=== PATIENT | female | born 1975 | race Caucasian/White ===

== ENCOUNTER → 2017-07-29 | Outpatient (CLI) | payer OTHER ==
[2017-07-14 07:00] VITALS: BP 132/84
[~2017-07-29] MED LIST: CEPH-263 PO; FERR325T72 PO; HYDR-2758 PO; IBUP-1060 PO; MULT-208 PO; ONDA4TAB10 SL; OXYC-323 PO; TRAM50TA PO
[2017-07-29 15:39] LABS: ALBUMIN 3.2 g/dL (3.4-5.0); ALBUMIN/GLOBULIN RATIO 0.7 (1.0-1.7); GFR 61.7; POTASSIUM 3.5 mmol/L (3.5-5.1); TOTAL BILIRUBIN 0.3 mg/dL (0.2-1.0); TOTAL PROTEIN 8.1 g/dL (6.4-8.2)
[2017-07-29 16:04] LABS: BASO # 0.1 x10^3/uL (0.0-0.2); BASO % 1 % (0-3); EOS % 2 % (0-3); HEMATOCRIT 31.6 % (36.0-47.0); HEMOGLOBIN 10.1 g/dL (12.0-15.5); LYMPH # 2.4 x10^3/uL (1.0-4.8); LYMPH % 23 % (24-48); MEAN CORPUSCULAR HEMOGLOBIN 24 pg (25-35); MEAN CORPUSCULAR HGB CONC 32 g/dL (31-37); MEAN CORPUSCULAR VOLUME 74 fL (79-100); MONO % 6 % (0-9); NEUT % 69 % (31-73); PLATELET COUNT 542 x10^3/uL (140-400); RED BLOOD COUNT 4.27 x10^6/uL (3.50-5.40); RED CELL DISTRIBUTION WIDTH 17.1 % (11.5-14.5); WHITE BLOOD COUNT 10.6 x10^3/uL (4.0-11.0)
== END | disposition home or self-care (01) ==
LOC: SURGPAT 14:37
PROVIDERS: ATTEND Obstetrics & Gynecology
DX: R10.9 Unspecified abdominal pain (principal)
CPT/HCPCS: 36415; 80053; 85025

== ENCOUNTER 2017-07-31 06:34 | Observation (INO) | payer OTHER ==
[~2017-07-31] VITALS: Ht 165.1 cm; Wt 101.2 kg
[2017-07-31] MEDS ORDERED: BUPIVACAINE-EPI 0.25%-1:200000 MPF 30 ML VIAL. ONE (06:37)
[2017-07-31] MEDS ORDERED: ESTROGENS, CONJ VAGINAL CREAM 30GM TUBE. ONE (06:37)
[2017-07-31] MEDS ORDERED: LIDOCAINE 1% 1 ML SYRINGE. ID PRN (07:00)
[2017-07-31] MEDS ORDERED: IV RINGERS,LACTATED 1000ML 1,000 ML IV SCH (07:00)
[2017-07-31] MEDS ORDERED: fentaNYL PF VIAL 100 MCG/2 ML VIAL IV PRN (07:00)
[2017-07-31] MEDS ORDERED: ONDANSETRON PF 4 MG/2 ML VIAL. IV PRN ×2 (07:00→12:15)
[2017-07-31] MEDS ORDERED: HYDROmorphone 2 MG/ML VIAL IV PRN ×2 (07:00→12:15)
[2017-07-31] MEDS ORDERED: PROCHLORPERAZINE 10 MG/2 ML VIAL. IV PRN (07:00)
[2017-07-31] MEDS ORDERED: SCOPOLAMINE 1.5MG PATCH. TD ONE (07:15)
[2017-07-31 07:35] LABS: NEG OBC UR NEG; POS OBC UR POS
[2017-07-31] MEDS ORDERED: SUCCINYLCHOLINE 200 MG/10 ML VIAL. ONE (07:44)
[2017-07-31] MEDS ORDERED: MIDAZOLAM HCL/PF 2 MG/2 ML VIAL. ONE (07:45)
[2017-07-31] MEDS ORDERED: fentaNYL PF VIAL 250 MCG/5 ML VIAL ONE (07:46)
[2017-07-31] MEDS ORDERED: ROCURONIUM 100 MG/10 ML VIAL. ONE (08:25)
[2017-07-31] MEDS ORDERED: ePHEDrine PF IN SALINE 50 MG/5 ML DISP.SYRIN IV ONE (08:25)
[2017-07-31] MEDS ORDERED: NEOSTIGMINE 10 MG/10 ML VIAL. ONE (08:30)
[2017-07-31] MEDS ORDERED: NEOSTIGMINE METHYLSULFATE 5 MG/5 ML SYRINGE. ONE (08:31)
[2017-07-31] MEDS ORDERED: GLYCOPYRROLATE 1 MG/5 ML VIAL. ONE (08:31)
[2017-07-31] MEDS ORDERED: PROPOFOL 40 ML IV ONE (08:32)
[2017-07-31] MEDS ORDERED: FAMOTIDINE 20 MG/2 ML VIAL ONE (08:45)
[2017-07-31] MEDS ORDERED: ESMOLOL 100 MG/10 ML VIAL. IV ONE (08:45)
[2017-07-31] MEDS ORDERED: ONDANSETRON PF 4 MG/2 ML VIAL. ONE (08:45)
[2017-07-31] MEDS ORDERED: DEXAMETHASONE SOD PHOS 20 MG/5 ML VIAL. ONE ×2 (08:45→10:53)
[2017-07-31] MEDS ORDERED: fentaNYL PF VIAL 100 MCG/2 ML VIAL ONE ×3 (08:50→12:37)
[2017-07-31] MEDS ORDERED: LABETALOL 20 MG/4 ML DISP.SYRIN. ONE (08:56)
--- NOTE | 2017-07-31 09:51 | PDOC4 ---
Operative Note Operative Note Date: 07/31/2017 Preoperative diagnosis: Left ovarian cyst with adhesions of the colon to the uterus Postoperative diagnosis: Left tubo-ovarian abscess with adhesions of the colon to the uterus Procedure: Robotic-assisted laparoscopic diagnostic with lysis of adhesions Surgeon: Kranthi Specimen: None Dictation: Mayur Quigley is a 41-year-old female had been recently admitted to the hospital with lower abdominal pain. At that time she was diagnosed with a left ovarian and cyst underwent a diagnostic laparoscopy and was found to have a normal-appearing tube and ovary on the left side but was difficult to visualize at that time secondary to colon being adhesed to the uterus and this area of the ovary and tube it was felt that time too dangerous to proceed she was rescheduled for a hysterectomy and I was requested to help with colonic adhesions. The procedure of robotic-assisted laparoscopy with lysis of adhesions was explained to the patient detail was benefits were also discussed including bleeding infection injury to colon possibly necessitating open or further operations. The patient seemed understanding gave both verbal and written consent have procedure performed. She was taken to the operating room placed in the supine position general anesthesia was initiated once patient was asleep and intubated she was placed in low lithotomy positioning. Her abdomen was prepped and draped usual sterile fashion using ChloraPrep peritoneum was prepped with Betadine scrub and solution. An area in the left upper quadrant was injected with quarter percent Marcaine with epinephrine and incision was made lead blade scalpel and a 5 mm Visiport was placed under direct visualization into the abdomen creating a pneumoperitoneum. Abdomen was inspected with a 5 mm camera was noted that she had some adhesions to the omentum to the anterior abdominal wall just below the umbilicus. At this time 3 da Taras ports were placed under direct visualization one in the right mid abdomen and one in the left mid abdomen and one above the umbilicus the da Taras robot was brought in and docked all port sites using a grasper and Endo Khloe scissors the adhesions to the anterior abdominal wall from the omentum were taken down. At this point Dr. Navarro placed uterine manipulator. Was noted that the sigmoid colon was adherent to the undersurface of the uterus and along the left side across to the area where the ovary would be as well as the tube which was quite dilated upon slowly dissecting off the sigmoid colon with blunt dissection a large amount of pus was expressed from the ovarian tube. The adhesions from the colon to the uterus were further taken down with blunt dissection completely rating the colon from the uterus. Area was irrigated and suctioned dry. The rest of the procedures to be dictated by . Estimated blood loss for my portion of the procedure 60 mL. STEVE KINSEY MD Jul 31, 2017 09:50
[2017-07-31] MEDS ORDERED: PHENYLEPHRINE in 0.9% NACL PF 1 MG/10 ML DISP.SYRIN. IV ONE (10:53)
[2017-07-31] MEDS ORDERED: ALBUMIN HUMAN 25% 100 ML IV ONE (11:20)
[2017-07-31] MEDS ORDERED: DESFLURANE > 120 MINUTES IH ONE (11:56)
--- NOTE | 2017-07-31 12:04 | PDOC ---
BRIEF OPERATIVE NOTE Date: Jul 31, 2017 Pre-Op Diagnosis pelvic pain, pelvic adhesive disease, history of endometriosis. Post-Op Diagnosis same plus TOA Procedure Performed LAVH and BSO with adhesiolysis\ cystoscopy Surgeon Melanie Restaurant Maintenance Technician Nba Anesthesiologist Shavon Anesthesia Type: General Blood Loss 1100cc IV Fluid see anesthesia report Urine Output 250cc- clear urine Specimens Obtained uterus, tubes, ovaries, TOA complex Findings see dictation Complications none FABRICIO HOLMAN MD Jul 31, 2017 12:04
[2017-07-31] MEDS ORDERED: PROCHLORPERAZINE 10 MG/2 ML VIAL. ONE (12:05)
[2017-07-31] MEDS ORDERED: NALOXONE 0.4 MG/ML VIAL. IV PRN (12:15)
[2017-07-31] MEDS ORDERED: diphenhydrAMINE 50 MG/ML VIAL IV PRN (12:15)
[2017-07-31] MEDS ORDERED: ZOLPIDEM 5 MG TABLET. PO PRN (12:15)
[2017-07-31] MEDS ORDERED: 0.9 % SODIUM CHLORIDE 10 ML DISP.SYRIN. IV PRN (12:15)
[2017-07-31] MEDS ORDERED: ESTRADIOL WEEKLY 0.1 MG PATCH. TD ONE (12:15)
[2017-07-31] MEDS ORDERED: diphenhydrAMINE HCL 25 MG CAPSULE PO PRN (12:15)
[2017-07-31] MEDS ORDERED: METOCLOPRAMIDE HCL 10 MG/2 ML VIAL. IV PRN (12:15)
[2017-07-31] MEDS ORDERED: LACTULOSE 20 GM/30 ML SOLUTION. PO PRN (12:15)
[2017-07-31] MEDS ORDERED: CALCIUM CARBONATE 500 MG TAB.CHEW PO PRN (12:15)
[2017-07-31] MEDS: fentaNYL PF VIAL 100 MCG/2 ML VIAL IV PRN ×4 (12:30→13:23)
[2017-07-31] MEDS ORDERED: MORPHINE SULFATE 2 MG/ML DISP.SYRIN. ONE ×2 (12:37→13:00)
[2017-07-31] MEDS: KETOROLAC 30 MG/ML INJ. IV PRN ×2 (12:41→21:41)
[2017-07-31] MEDS: MORPHINE SULFATE 2 MG/ML DISP.SYRIN. IV PRN ×4 (12:44→13:30)
[2017-07-31 13:30] VITALS: BP 89/57
[2017-07-31 13:45] VITALS: BP 102/54
[2017-07-31 14:00] VITALS: BP 112/58
[2017-07-31 14:58] VITALS: BP 104/73
[2017-07-31] MEDS: oxyCODONE/APAP 5/325 1 TAB TABLET PO PRN (16:32)
[2017-07-31 16:59] VITALS: BP 110/62
[2017-07-31] MEDS: HYDROmorphone 2 MG/ML VIAL IM PRN (19:05)
[2017-07-31 21:40] VITALS: BP 96/58
[2017-08-01] VITALS (9 sets, daily range): BP systolic 103–142; BP diastolic 52–73
[2017-08-01] MEDS: HYDROmorphone 2 MG/ML VIAL IM PRN (01:44)
[2017-08-01] MEDS: SIMETHICONE 80 MG TAB.CHEW PO PRN ×2 (07:36→17:13)
[2017-08-01] MEDS: oxyCODONE/APAP 5/325 1 TAB TABLET PO PRN (07:36)
[2017-08-01] MEDS: FERROUS SULFATE 325 MG TABLET. PO SCH ×2 (07:36→17:13)
--- NOTE | 2017-08-01 08:47 | PDOC ---
SURGICAL PROGRESS NOTE Subjective Pt is very sore. Feeling lightheaded and dizzy also. Was not able to eat breakfast yet. No bleeding Moderate pain. Sitting in chair Vital Signs Vital Signs Date Time Temp Pulse Resp B/P (MAP) Pulse Ox O2 Delivery O2 Flow Rate FiO2 08/01/17 07:36 16 Room Air 08/01/17 01:52 98.4 88 142/71 (94) 99 98.4 07/31/17 14:58 2.0 PATIENT HAS A HUITRON: No General: Alert, Oriented X3, Cooperative, No acute distress HEENT: Mucous membr. moist/pink Lungs: Clear to auscultation, Normal air movement Heart: Regular rate, Normal S1, Normal S2, No murmurs Abdomen: Normal bowel sounds, Soft, No tenderness, No hepatosplenomegaly, No masses, Other (incisions c /d /i) Extremities: No clubbing, No cyanosis, No edema, Normal pulses, No tenderness/ swelling Skin: No rashes, No breakdown, No significant lesion Labs Laboratory Tests Test 07/31/17 07:05 07/31/17 16:30 08/01/17 05:30 Urine Test Negative (NEG) Hematocrit 24.4 % (36.0-47.0) Hemoglobin 6.4 g/dL (12.0-15.5) Laboratory Tests Test 07/31/17 16:30 08/01/17 05:30 Hematocrit 24.4 % (36.0-47.0) Hemoglobin 6.4 g/dL (12.0-15.5) I have reviewed the following labs, vitals Problem List POD #1 from Robotic assisted lavh and bso with adhesiolysis and cytstoscopy. Pt is anemic from prior anemia and surgical blood loss. Plan for type, cross and transfusion of 2 U prbcs today. Ambulate and advance diet. Problems: FABRICIO HOLMAN MD Aug 01, 2017 08:47
--- NOTE | 2017-08-01 08:48 | DISCH ---
DISCHARGE INSTRUCTIONS Condition on Discharge Condition on Discharge: Stable Activity After Discharge Activity Instructions for Disc: Activity as tolerated Exercise Instruction after Dis: Progress as tolerated Driving Instructions after Dis: No driving for 2 weeks Weight Bearing Status after Di: Full weight bearing Diet after Discharge Diet after Discharge: Regular Wound Incision Care Wound/Incision Care: Ice to area for comfort, May get incision wet Contacting the DRHong after DC Call your doctor for: If your condition worsens Follow-Up Follow up with: Dr. Holman in 1 week FABRICIO HOLMAN MD Aug 01, 2017 08:48
[2017-08-01] MEDS: MAG HYDROX/ALUMINUM HYD/SIMETH 30 ML ORAL.SUSP PO PRN ×2 (09:54→18:44)
[2017-08-01] MEDS: IBUPROFEN 600 MG TABLET. PO PRN ×2 (09:54→18:44)
--- NOTE | 2017-08-01 09:59 | OP ---
DATE OF SURGERY: The patient is a 41-year-old female who presented yesterday for robotic-assisted LAVH and BSO due to history of pelvic adhesive disease and severe pelvic pain. PREOPERATIVE DIAGNOSES: Pelvic pain and pelvic adhesive disease with history of endometriosis. POSTOPERATIVE DIAGNOSES: Pelvic pain and pelvic adhesive disease with history of endometriosis plus tubo-ovarian abscess. PROCEDURE PERFORMED: LAVH and BSO with adhesiolysis robotic-assisted and then cystoscopy. SURGEON: Dr. Candis Holman and Dr. Arango. ANESTHESIOLOGIST: Dr. Sands. ANESTHESIA TYPE: General. BLOOD LOSS: 1100 mL. INTRAVENOUS FLUIDS: Please see the anesthesia report. URINE OUTPUT: 250 mL of clear urine. SPECIMENS: Uterus, tubes, ovaries, and TOA complex. DESCRIPTION OF PROCEDURE: After informed consent was obtained, the patient was taken to the operating room and given a smooth induction of anesthesia without complications. completed his part of the procedure first which include robotically placing the ports. Please see his description of his procedure. I was called in to the operating room to place the vaginal instruments. I put a speculum in the vagina and put a tenaculum in the cervix. I placed the Valtchev in the cervical os and attached it to the tenaculum. I then removed the speculum. Once was done taking down the bowel, I was called back to the OR for my portion of procedure. I robotically took down the round ligament on the right side and began to take down the infundibulopelvic ligament on the right side. Unfortunately, this began to bleed profusely and it was difficult to see, so at this point, we decided to abandon the robot. The robot was disconnected and Dr. Arango came in to assist with the rest of the procedure. We used the LigaSure to cauterize the pedicles and this did much better job than the robot. The patient's tissue was very poor and friable and this was the primary reason for so much blood loss. In addition to the fact that she had so many adhesions and these were just primarily oozing. We took down the right side pretty easily. The site was pretty much clear. It was a little bit difficult to dissect the bladder flap anteriorly. This was done with a combination of the LigaSure and blunt dissection. We were able to cauterize the round ligament and the infundibulopelvic ligament on the right side. We were able to visualize the ureter on the right side. Once we took down the uterine arteries using the LigaSure, we took these all the way down to the uterosacral ligaments on the right side. The left side was much more difficult. We were up to cauterize the round ligament on the left and this was transected with the LigaSure. We then were left to deal with the large TOA complex. We were able to find the end of the tube and we were able to elevate the tube. At this point, it was clear that the TOA was still draining. We were able to create a plane between what was up to the TOA complex and ovary and the bowel that was still stuck at this point. We bluntly dissected this with the suction and we were able to peel the ovary into a complex off of the pelvic sidewall. Once this was free, we transected the infundibulopelvic ligament. We stayed high on the ovaries since we were not able to see the ureter at all. Once these were free, we came down the sides of the uterus, cauterizing the uterine arteries as we went. At this point, we went down below. The speculum was placed back in the vagina and the tenaculum and Valtchev were removed. We injected at the cervicovaginal junction with 0.5% Marcaine with epinephrine at 2, 4, 8 and 10 o'clock on the cervix. We then created a circumferential incision around the cervix. Again, we had a lot of difficulty with the friability of the tissue and parts of the cervix were tearing. It was hard to develop the bladder flap, it was hard to enter posteriorly. The whole case was very difficult. We were eventually able to enter the posterior peritoneum and this was tacked in the posterior vaginal wall and saved for later use. A Adry speculum was then placed intraperitoneally. We then used Harjeet clamps to clamp, cut and ligate the uterosacral ligaments. These were then tacked to the lateral vaginal sidewalls. We were able to clamp, cut and ligate what was left of the uterosacral ligaments and eventually, we were able to enter anteriorly and free up the rest of the uterus. Once this was free, it was removed. At this point, Dr. Arango had to go back above and push the right ovary which had become detached, the tubo-ovarian complex which was detached and the left ovary, which had become detached. She had to push them all through the vaginal cuff because it was difficult to find them from below. Once these were all obtained, we closed the peritoneum using a pursestring suture of 2-0 Vicryl. Vagina was then closed with running locking stitch of 2-0 Vicryl. At this point, we did a cystoscopy. The bladder was noted to be clear. Both ureters were noted to be jetting urine. We then went above to irrigate the pelvis. No active bleeding was noted. The raw surfaces were sprayed with Tisseel. At this point, the procedure was terminated. The instruments were removed under direct visualization and the ports were closed with an interrupted suture of 4-0 nylon. The patient tolerated the procedure well. There were no complications except for an excessive amount of blood loss. She went to the recovery room in good condition. CANDIS HOLMAN MD DR: GREG/josselyn JOB#: [id number] / [id number]
[2017-08-01] MEDS: HYDROcodone/APAP 5/325MG 1 TAB TABLET PO PRN ×3 (13:49→22:29)
[2017-08-02 00:11] LABS: HEMATOCRIT 24.5 % (36.0-47.0); HEMOGLOBIN 8.1 g/dL (12.0-15.5)
[2017-08-02] MEDS: IBUPROFEN 600 MG TABLET. PO PRN (09:37)
--- NOTE | 2017-08-02 10:36 | PDOC ---
SURGICAL PROGRESS NOTE Subjective Doing much better. No bleeding . Not dizzy since getting blood. Eating and taking Lortab. Feels this works better with less stomach upset than the percocet Vital Signs Vital Signs Date Time Temp Pulse Resp B/P (MAP) Pulse Ox O2 Delivery O2 Flow Rate FiO2 08/01/17 22:31 98.4 62 118/69 (85) 98 Room Air 98.4 08/01/17 22:29 16 PATIENT HAS A HUITRON: No General: Alert, Oriented X3, Cooperative, No acute distress HEENT: Mucous membr. moist/pink Abdomen: Normal bowel sounds, Soft, No tenderness, No hepatosplenomegaly, No masses, Other (incisions c/d/i) Extremities: No clubbing, No cyanosis, No edema, Normal pulses, No tenderness/ swelling Labs Laboratory Tests Test 07/31/17 16:30 08/01/17 05:30 08/02/17 00:01 Hematocrit 24.4 % (36.0-47.0) 24.5 % (36.0-47.0) Hemoglobin 6.4 g/dL (12.0-15.5) 8.1 g/dL (12.0-15.5) Mean Corpuscular Hemoglobin Concent 33 g/dL (31-37) Laboratory Tests Test 08/02/17 00:01 Hemoglobin 8.1 g/dL (12.0-15.5) Hematocrit 24.5 % (36.0-47.0) Mean Corpuscular Hemoglobin Concent 33 g/dL (31-37) I have reviewed the following vitals, exam, labs Problem List POD#2 from surgery. Plan is to discharge today. Instructions given Problems: FABRICIO HOLMAN MD Aug 02, 2017 10:36
--- NOTE | 2017-08-02 10:41 | PDOC3 ---
Discharge Summary Visit Information Date of Admission: Jul 31, 2017 Date of Discharge: Aug 02, 2017 Admitting Diagnosis: pelvic pain, pelvic adhesive disease, probable endometri Final Diagnosis pelvic pain, pelvic adhesive disease, anemia, TOA Brief Hospital Course Allergies Allergies Coded Allergies Type Severity Reaction Last Updated Verified No Known Drug Allergies 07/31/17 No Vital Signs Vital Signs Date Time Temp Pulse Resp B/P (MAP) Pulse Ox O2 Delivery O2 Flow Rate FiO2 08/01/17 22:31 98.4 62 118/69 (85) 98 Room Air 98.4 08/01/17 22:29 16 Lab Results Laboratory Tests Test 07/31/17 16:30 08/01/17 05:30 08/02/17 00:01 Hematocrit 24.4 % (36.0-47.0) 24.5 % (36.0-47.0) Hemoglobin 6.4 g/dL (12.0-15.5) 8.1 g/dL (12.0-15.5) Mean Corpuscular Hemoglobin Concent 33 g/dL (31-37) Laboratory Tests Test 08/02/17 00:01 Hemoglobin 8.1 g/dL (12.0-15.5) Hematocrit 24.5 % (36.0-47.0) Mean Corpuscular Hemoglobin Concent 33 g/dL (31-37) Brief Hospital Course Ms. Holloway is a 41 old F who presented with Pelvic pain and pelvic adhesive disease diagnosed the week before on l/s at [facility]. Pt presented on for robotic lysis of adhesions by Dr. Crisostomo and then robotic TLH and bso. Pt underwent the planned procedure. She was found to have a TOA which ruptured during the bowel adhesiolysis. The hysterectomy was very difficult due to the poor quality of tissue and the scarring. We also did a cystoscopy at the end to ensure the integrity of the ureters and bladder. This was normal. Post op, pt was more anemic (10-6) and received 2U PRBCs. She feels much better now. She is ambulating and tolerating regular diet. She is tolerating oral pain meds. She wishes to go home Discharge Information Condition at Discharge: Improved Follow Up: Weeks (1) Disposition/Orders: D/C to Home Scheduled Ferrous Sulfate (Feosol), 325 MG PO BID Multivitamin (Multi-Day Vitamins), 1 TAB PO DAILY, (Reported) Oxycodone/Apap 5-325 (Percocet 5-325 Mg Tablet), 1-2 TAB PO Q4-6HRS, (Reported) Scheduled PRN Ibuprofen (Ibuprofen), 800 MG PO PRN Q6HRS PRN for INFLAMMATION, (Reported) Tramadol Hcl (Tramadol Hcl), 50 MG PO PRN Q6HRS PRN for PAIN Patient Instructions Patient Instructions see instructions FABRICIO HOLMAN MD Aug 02, 2017 10:41
[2017-08-02 10:50] VITALS: BP 112/68
[2017-08-02] MEDS: HYDROcodone/APAP 5/325MG 1 TAB TABLET PO PRN (10:58)
--- NOTE | 2017-08-04 14:28 | PATHOLOGY ---
PATHOLOGY REPORT * * * * * * * * FINAL DIAGNOSIS: Uterine corpus, uterine cervix, and separate bilateral fallopian tubes and ovaries, laparoscopic-assisted vaginal hysterectomy with bilateral salpingo-oophorectomy: - Uterine serosal adhesions. - Tubo-ovarian adhesions. - Small endocervical polyp. - Proliferative endometrium. - Adenomyosis, uterine corpus, sub-basal, with myometrial hypertrophy. - Focal endometriosis of right fallopian tube. - Cystic follicles of right ovary. - Acute and chronic salpingitis and tubo-ovarian abscess of left adnexa. - Cystic follicles of left ovary, several. (JPM:dyana; 08/04/2017) COMMENT: There is no evidence of malignancy. REPORT ELECTRONICALLY SIGNED BY: Nacho Hutchins M.D. DATE/TIME: 08/04/2017 14:28 * * * * * * * * GROSS PATHOLOGY: The specimen is received in formalin, labeled "Amie, uterus, cervix, fallopian tubes, and ovaries" is a disrupted total abdominal hysterectomy specimen with a combined weight of 188 g. The specimen is received in several fragments. A segment of uterine corpus/upper cervix measures 10.0 x 7.0 x 4.5 cm, a segment of cervix measures 3.2 x 2.5 x 1.0 cm, an ovary measures 2.9 x 2.8 x 1.7 cm with contiguous fallopian tube, 3.5 x 0.3-1.2 cm, a presumed portion of ovary and questionable fallopian tube, 5.5 x 4.5 x 1.0 cm (overall size) and a presumed separate disrupted ovary measures 6.0 x 4.0 x 3.2 cm. The corpus shows numerous thick dark red-brown adhesions. The adhesions are prominent at the left cornu. The uninvolved serosa is glistening and pink-blair. The specimen is bivalved. The upper endocervical mucosa is slightly roughened, glistening, and blair to blair-brown. The endometrial cavity measures 4.5 x 2.0 cm and is lined by glistening blair-pink to red endometrium ranging in thickness from 0.1 cm to 0.4 cm. The myometrium ranges in thickness from 1.7 cm to 2.5 cm. No myometrial lesions are identified. Due to the significant disruption of the specimen there is minimal ectocervical mucosa identified. The ovary with contiguous fallopian tube reveals smooth to roughened, ventura, blair, and hemorrhagic surfaces. Sectioning the ovary reveals multifocal cysts ranging in size from 0.3 cm to 1.1 cm in diameter. Also identified is a 1.1 cm corpus luteum. The contiguous fallopian tube demonstrates roughened serosa and sectioning reveals no mucosal lesions. The separate presumed portion of ovary (probable left side) and questionable fallopian tube reveals markedly roughened and dark red-brown surfaces. Sectioning reveals underlying dense ventura-pink parenchyma and blood clot. A definitive lumen is not grossly identified. The presumed separate ovary (probable left) demonstrates roughened red-brown and ventura-blair surfaces. Sectioning reveals an underlying uniloculated cavity, 2.2 cm in diameter. The lining of the cavity is roughened and ventura to red-brown. The surrounding cut surfaces are dense, pink, blair, and hemorrhagic. A fallopian tube structure is not identified within this fragment. Compliance Field Technician sections are submitted as A1-17. A1 probable and minimal ectocervix A2 upper cervix attached to corpus A3 lower uterine segment (probable anterior) A4-5 probable anterior endomyometrium A6-A7 probable posterior endomyometrium A8 serosal adhesions (probable left cornu) A9-10 ovary with contiguous fallopian tube A11 fallopian tube with contiguous ovary A12-13 sections of separate tissue, possible portion of ovary and possible fallopian tube (not recognized on cut surface) A14-17 separate disrupted and presumed ovary, possible fallopian tube (probable left side) (HARJIT; 08/01/2017) INITIAL CPT CODE(S): A; 12005 Professional services performed by [facility] at [address] [address] Technical services performed by [facility] at [address] [place] [address], [address], [place] [address]. SPECIMEN(S) RECEIVED: A.Uterus, cervix, fallopian tubes and ovaries CLINICAL HISTORY: History of endometriosis, abdominal pain PATIENT: JESUS PALACIO /AGE: 112/08/1975 (Age: 41) PATIENT #: [id number] ALT CASE #: SPECIMEN COLLECTION DATE: 07/31/2017 SPECIMEN RECEIVED DATE: 07/31/2017 [facility] - [id number] [place] [address] - PHONE: [phone] * * * END OF REPORT * * *
== END 2017-08-02 11:14 | disposition home or self-care (01) ==
LOC: SURG 06:34 → 3 NORTH 12:20
PROVIDERS: ADMIT Obstetrics & Gynecology; ATTEND Obstetrics & Gynecology
DX: R10.2 Pelvic and perineal pain (principal); N73.6 Female pelvic peritoneal adhesions (postinfective); D64.9 Anemia, unspecified; N70.93 Salpingitis and oophoritis, unspecified; N83.202 Unspecified ovarian cyst, left side
CPT/HCPCS: 36415; 36430; 58552; 81025; 85014; 85018; 86850; 86900; 86901; 86920; 88307; 96365; 96366; 96367; 96372; 96375; C1769; G0378; G0379; J0330; J0690; J0780; J1100; J1170; J1885; J2250; J2270; J2370; J2405; J2704; J2710; J3010; J3490; J7030; J7120; P9016; P9046; S0028; S2900

== ENCOUNTER → 2018-08-31 | Outpatient (CLI) | payer OTHER ==
--- NOTE | 2018-08-31 16:27 | KCIC ---
Pelvic ultrasound, 08/31/2018: HISTORY: Left adnexal mass, left lower quadrant pain Transabdominal and transvaginal scans were obtained. By history the patient has undergone a previous hysterectomy and bilateral oophorectomy. There are 2 adjacent smooth hypoechoic structures present at the level of the vaginal cuff. The largest of these measures 1 cm. No internal color flow is seen. The appearance suggests small cystic structures. There is a 4 cm hypoechoic structure in the left adnexa. This corresponds in location to a low-density mass seen on the 08/28/2018 CT study in the expected region of the left ovary. It is visible on the transabdominal scans but could not be clearly seen transvaginally. It lies adjacent to the urinary bladder but its contents appear slightly more echogenic than the bladder. No internal color flow is seen. No other pelvic mass or abnormal fluid collection is seen. IMPRESSION: 1. Status post hysterectomy. 2. Small smooth cystic structures at the vaginal cuff may represent postoperative change such as small hematomas or epithelial inclusion cysts. Nabothian cysts could give this appearance if a portion of the cervix was left in place. 3. Left pelvic hypoechoic mass to the lesion seen on the recent CT study. Diagnostic considerations include a cyst in an ovarian remnant, an endometrioma or small postoperative hematoma. 4. Correlation with the exact surgical history is suggested. Electronically signed by: Willard Draper MD (08/31/2018 4:24 PM) [facility]
== END | disposition home or self-care (01) ==
LOC: KCIC US 13:34
PROVIDERS: ATTEND Nurse Practitioner Family
DX: N88.8 Other specified noninflammatory disorders of cervix uteri (principal); Z90.710 Acquired absence of both cervix and uterus; Z98.890 Other specified postprocedural states
CPT/HCPCS: 76830; 76856

== ENCOUNTER 2018-10-08 06:06 | Day surgery (SDC) | payer OTHER ==
[~2018-10-08] VITALS: Ht 167.6 cm; Wt 104.3 kg
[~2018-10-08 06:06] MED LIST changes: +CHOL10003 PO
[2018-10-08] MEDS ORDERED: ONDANSETRON PF 4 MG/2 ML VIAL. IV PRN (07:00)
[2018-10-08] MEDS ORDERED: HYDROmorphone 2 MG/ML VIAL IV PRN (07:00)
[2018-10-08] MEDS ORDERED: IV RINGERS,LACTATED 1000ML 1,000 ML IV SCH (07:00)
[2018-10-08] MEDS ORDERED: MORPHINE SULFATE 2 MG/ML VIAL. IV PRN (07:00)
[2018-10-08] MEDS ORDERED: LIDOCAINE 1% PF 2 ML VIAL. ID PRN (07:00)
[2018-10-08] MEDS ORDERED: SCOPOLAMINE 1.5MG PATCH. TD ONE (07:00)
[2018-10-08] MEDS ORDERED: fentaNYL PF VIAL 100 MCG/2 ML VIAL IV PRN (07:00)
[2018-10-08] MEDS ORDERED: PROCHLORPERAZINE 10 MG/2 ML VIAL. IV PRN (07:00)
[2018-10-08] MEDS ORDERED: SURGICEL HEMOSTAT 4X8 EACH. ONE (07:09)
[2018-10-08] MEDS ORDERED: BUPIVAC MPF-EPI 0.5%-1:200000 30 ML VIAL. ONE (07:09)
[2018-10-08] MEDS ORDERED: SEVOFLURANE 61 TO 120 MINUTES. IH ONE (07:39)
[2018-10-08] MEDS ORDERED: KETOROLAC 30 MG/ML INJ FOR OR. INJ ONE (07:40)
[2018-10-08] MEDS ORDERED: MIDAZOLAM HCL/PF 2 MG/2 ML VIAL. ONE (07:40)
[2018-10-08] MEDS ORDERED: GLYCOPYRROLATE 1 MG/5 ML VIAL. ONE (07:40)
[2018-10-08] MEDS ORDERED: ROCURONIUM 50 MG/5 ML VIAL. ONE (07:40)
[2018-10-08] MEDS ORDERED: DEXAMETHASONE SOD PHOS 20 MG/5 ML VIAL. ONE (07:40)
[2018-10-08] MEDS ORDERED: PROPOFOL 20 ML IV ONE (07:40)
[2018-10-08] MEDS ORDERED: fentaNYL PF VIAL 100 MCG/2 ML VIAL ONE ×3 (07:40→10:11)
[2018-10-08] MEDS ORDERED: NEOSTIGMINE METHYLSULFATE 5 MG/5 ML SYRINGE. ONE (07:40)
[2018-10-08] MEDS ORDERED: ONDANSETRON PF 4 MG/2 ML VIAL. ONE (07:40)
[2018-10-08] MEDS ORDERED: PHENYLEPHRINE in 0.9% NACL PF 1 MG/10 ML SYRINGE. IV ONE (08:40)
[2018-10-08] MEDS ORDERED: ePHEDrine PF IN SALINE 50 MG/5 ML DISP.SYRIN IV ONE (08:56)
--- NOTE | 2018-10-08 09:56 | DISCH ---
DISCHARGE INSTRUCTIONS Condition on Discharge Condition on Discharge: Stable Activity After Discharge Activity Instructions for Disc: Activity as tolerated, Avoid exertion Lifting Instructions after Dis: No heavy lifting Exercise Instruction after Dis: Progress as tolerated Driving Instructions after Dis: Do not drive today Weight Bearing Status after Di: No restrictions Diet after Discharge Diet after Discharge: Regular Diet Texture: Regular Swallowing Supervision: None needed Contacting the DRHong after DC Call your doctor for: If your condition worsens Follow-Up Follow up with: Dr. Chamorro in 1 week. Treatment/Equipment after DC Adaptive Equipment Issued: None AMRIT CHAMORRO Jr, MD Oct 08, 2018 09:56
--- NOTE | 2018-10-08 09:56 | PDOC ---
BRIEF OPERATIVE NOTE Date: Oct 08, 2018 Pre-Op Diagnosis Left adnexal mass Post-Op Diagnosis HAMILTON Cyst Endometriosis Procedure Performed [facility] LSO and lysis of adhesions Surgeon Dr. Chamorro Anesthesia Type: General Blood Loss 25 ml Specimens Obtained Left fallopian tube and HAMILTON Findings HAMILTON cyst with pelvic side wall adhesions and endometriosis Complications none Operative Note see dictation AMRIT CHAMORRO Jr, MD Oct 08, 2018 09:56
[2018-10-08] MEDS ORDERED: OXYC-323 PO (10:10)
[2018-10-08] MEDS ORDERED: oxyCODONE/APAP 5/325 1 TAB TABLET PO ONE ×2 (10:15)
[2018-10-08] MEDS: fentaNYL PF VIAL 100 MCG/2 ML VIAL IV PRN ×2 (10:17→10:37)
[2018-10-08] MEDS ORDERED: PROCHLORPERAZINE 10 MG/2 ML VIAL. ONE (10:24)
--- NOTE | 2018-10-08 10:39 | OP ---
DATE OF SURGERY: 10/08/2018 PREOPERATIVE DIAGNOSES: Left adnexal mass and pelvic pain. POSTOPERATIVE DIAGNOSES: 1. Left ovarian cyst. 2. Endometriosis. PROCEDURE: Laparoscopic left salpingo-oophorectomy and lysis of adhesions. SURGEON: Jason Chamorro MD ANESTHESIA: GETA. ESTIMATED BLOOD LOSS: 25 mL. COMPLICATIONS: None. FINDINGS: Left ovarian cyst with pelvic sidewall adhesions as well as endometriosis throughout the pelvic cul-de-sac. SUMMARY: A 42-year-old with pelvic pain and left adnexal mass requiring laparoscopic LSO. She was counseled on the risks, benefits and expectations and voiced a clear understanding to proceed. DESCRIPTION OF PROCEDURE: The patient was taken to surgery suite and placed in dorsal lithotomy position. She was prepped with Betadine solution for vaginal prep and ChloraPrep for abdominal prep. After adequate anesthesia, a moist sponge stick was placed vaginally. Attention was then placed on abdomen. Small transverse skin incision was made with scalpel. Veress needle was then placed through the infraumbilical incision site. The abdomen was allowed to insufflate up to 1-1/2 liters CO2 gas. The Veress needle was then removed, 5 mm trocar was placed. The scope was positioned. There were multiple abdominal adhesions as well as pelvic sidewall adhesions. Two incisions made in the left lower quadrant, which a 5 mm port and an 11 mm port was placed. With aid of graspers and EnSeal device as well as the Harmonic scalpel, the adhesions were dissected. The ovary was adhesed to the left pelvic sidewall and was more retroperitoneal, which we entered the retroperitoneum using the Harmonic scalpel, was dissected delicately to isolate the left ovary and left fallopian tube. There was bowel that was adhesed to left pelvic sidewall that was dissected with blunt dissection. The left infundibulopelvic ligament was coagulated and dissected. Left fallopian tube and ovary were then removed in their entirety. The pedicle was hemostatic. Suction irrigation was utilized to verify good hemostasis. The left ureter was visualized and functioning normally. Small amount of normal saline was left in posterior cul-de-sac. The trocars were then removed under direct visualization. The abdomen was allowed to deflate as much as possible along with mechanical manipulation. The 11 mm port was closed at the fascial layer using 2-0 Vicryl suture in a [id number] manner. Incision was closed at the skin level using 4-0 Vicryl suture in subcuticular manner. A 0.5% Marcaine with epinephrine was injected at each incision site. The moist sponge stick was then removed. The patient tolerated the procedure well and was taken to recovery room in stable condition. Sponge and needle count correct x 3. JASON CHAMORRO MD DR: RIC/josselyn JOB#: [id number] / [id number]
[2018-10-08 11:14] VITALS: BP 141/69
--- NOTE | 2018-10-09 18:07 | PATHOLOGY ---
[facility] Accession Number: [id number] . 01 Material submitted: . LEFT TUBE AND OVARY . 02 Diagnosis: Ovary, left oophorectomy: - Cystic follicles with regressive changes. - Capsular adhesions. (JPM:email production specialist; 10/09/2018) MBR/10/09/2018 . 02 Comment: The entire specimen is submitted for histologic evaluation. There is no fallopian tube identified. There is no evidence of malignancy. (JPM:email production specialist; 10/09/2018) . 02 Electronically signed: . Nacho Hutchins MD, Pathologist NPI- [id number] . 01 Gross description: . The specimen is received in formalin, labeled "Roque Holloway, left tube and ovary", is a 4 g, 3.0 x 1.7 x 1.0 cm rubbery blair-pink soft tissue. The specimen is entirely inked black, serially sectioned to reveal a 1.7 x 0.5 x 0.5 cm cyst. The remaining cut surface is blair-ventura with hemorrhagic foci. The specimen is entirely submitted in A1-A5. ([facility]; 10/08/2018) SHS/SHS . 02 Pathologist provided ICD-10: N83.202 . 02 CPT . 558338 Specimen Comment: A courtesy copy of this report has been sent to Specimen Comment: [phone], . Specimen Comment: Report sent to / DR CALABRESE Specimen Comment: A duplicate report has been generated due to demographic updates. Performed at: [address], [place], [place] [id number] MD Willis Ruvalcaba MD Phone: [phone] Performed at: 02 [facility] [address] [place], [place] [id number] MD Nacho Hutchins MD Phone: [phone]
== END 2018-10-08 11:58 | disposition home or self-care (01) ==
LOC: SURG 06:06
PROVIDERS: ATTEND Obstetrics & Gynecology
DX: N83.02 Follicular cyst of left ovary (principal); N73.6 Female pelvic peritoneal adhesions (postinfective); I10 Essential (primary) hypertension; Z90.710 Acquired absence of both cervix and uterus; Z90.79 Acquired absence of other genital organ(s); Z90.722 Acquired absence of ovaries, bilateral; Z98.890 Other specified postprocedural states; Z80.41 Family history of malignant neoplasm of ovary
CPT/HCPCS: 58661; 88305; A7015; C1782; J0690; J0780; J1100; J1885; J2250; J2370; J2405; J2704; J2710; J3010; J3490; J7030; J7120